=== PATIENT | male | born 1945 | race Caucasian/White ===

== ENCOUNTER 2021-11-30 13:11 | Outpatient (CLI) | payer MEDICARE, BC, SELFPAY ==
[2021-11-30 13:27] VITALS: BP 117/69; PULSE 97; RESP 16; O2SAT 97
[2021-11-30] MEDS: BRIMONIDINE TARTRATE 0.2% OPHTH 1 DROP EYE-BOTH ×2 (13:35→15:11)
[2021-11-30] MEDS: TETRACAINE 0.5% OPHTH 1 DROP EYE-BOTH ×3 (13:36→15:00)
--- NOTE | 2021-11-30 19:33 | P.PCN_ITS ---
Procedure Note Date Seen: 11/30/21 Will [facility] bill your pro fee for this procedure?: No Procedure: yag pc od 75 pulses at 2.2 mjouls, os 45 pulses 2.2 mjoules no complications Surgeon: Klaus Blake MD
== END 2021-11-30 15:17 | disposition home or self-care (01) ==
PROVIDERS: PCP Family Medicine; Visit Provider Ophthalmology
DX: H26.9 Unspecified cataract (principal)
CPT/HCPCS: 66821; A9270